=== PATIENT | female | born 1955 | race Two or more races ===

== ENCOUNTER 2018-10-28 15:20 | Inpatient (IN) | payer MEDICAID, MEDICARE, OTHER ==
[2018-10-28] MEDS ORDERED: METOPROLOL 5 MG/5 ML VIAL IVP STA ×2 (16:02→16:21)
[2018-10-28] MEDS ORDERED: METOPROLOL 5 MG/5 ML VIAL IVP ONE (16:04)
--- NOTE | 2018-10-28 16:06 | ED Physician Documentation ---
PD HPI DYSPNEA - Stated complaint Stated Complaint: SOA/TIGHT CHEST/NO ENERGY - Chief complaint Chief Complaint: Cardiac - History obtained from History obtained from: Patient - History of Present Illness Timing - onset: Other (She has had unexplained dyspnea for the last month. She went to her doctor, who said her lungs were clear. Gets lab work was done then to and it was normal. She was taking carvedilol for blood pressure. She has no history of heart disease. She stopped the carvedilol looking at the side effects thinking that it was potentially due to the carvedilol and the symptoms got worse. She denies pedal edema or chest pain. She has no heart history.) Review of Systems Ten Systems: 10 systems reviewed and negative Constitutional: reports: Fatigue. denies: Fever, Chills Throat: denies: Dental pain / toothache, Sore throat Cardiac: denies: Chest pain / pressure, Palpitations Respiratory: reports: Dyspnea. denies: Cough PD PAST MEDICAL HISTORY - Present Medications Home Medications: Ambulatory Orders Medication Instructions Recorded Confirmed Atorvastatin [Lipitor] 20 mg ORAL DAILY 10/28/18 10/28/18 Benazepril HCl [Lotensin] 20 mg PO DAILY 10/28/18 10/28/18 Sertraline [Zoloft] 100 mg PO BID 10/28/18 10/28/18 - Allergies Allergies/Adverse Reactions: Allergies Allergy/AdvReac Type Severity Reaction Status Date / Time Penicillins Allergy Unknown Verified 10/28/18 15:51 Sulfa (Sulfonamide Allergy Unknown Verified 10/28/18 15:51 Antibiotics) PD ED PE NORMAL - Vitals Vital signs reviewed: Yes - General General: Alert and oriented X 3, No acute distress - HEENT HEENT: PERRL, EOMI - Neck Neck: Supple, no meningeal sign, No bony TTP, Thyroid normal (No palpable thyromegaly) - Cardiac Cardiac: Other (Rapid and irregular without murmur) - Respiratory Respiratory: No respiratory distress, Other (Faint rales at the bases) - Abdomen Abdomen: Soft, Non tender - Derm Derm: Normal color - Extremities Extremities: No edema, No calf tenderness / cord - Neuro Neuro: Alert and oriented X 3, Normal speech - Psych Psych: Normal mood, Normal affect Results - Vitals Vitals: Vital Signs - 24 hr 10/28/18 10/28/18 10/28/18 15:47 15:50 16:05 Temperature 36.9 C Heart Rate 140 H 180 H 164 H Respiratory 20 14 14 Rate Blood Pressure 153/132 H 153/118 H 139/125 H O2 Saturation 96 97 97 10/28/18 10/28/18 10/28/18 16:06 16:08 16:14 Temperature Heart Rate 160 H 146 H 140 H Respiratory 12 18 Rate Blood Pressure 130/102 H 139/96 H 110/63 O2 Saturation 96 98 10/28/18 10/28/18 10/28/18 16:28 16:29 16:40 Temperature Heart Rate 152 H 135 H 112 H Respiratory 16 18 Rate Blood Pressure 116/99 H 127/104 H 140/104 H O2 Saturation 98 100 10/28/18 16:51 Temperature Heart Rate 138 H Respiratory 20 Rate Blood Pressure 119/93 H O2 Saturation 97 Oxygen O2 Source Room air - EKG (time done) 1538 Rate: Rate (enter#) (173) Rhythm: Atrial fibrillation [place]: Normal Ischemia: Non specific changes Computer interpretation: Agree with computer - Labs Labs: Laboratory Tests 10/28/18 10/28/18 10/28/18 15:53 15:53 15:53 WBC 7.9 RBC 4.52 Hgb 14.4 Hct 43.1 MCV 95.4 MCH 31.8 H MCHC 33.4 RDW 13.9 Plt Count 324 MPV 7.7 L Neut # (Auto) 6.1 Lymph # (Auto) 1.2 L [place] # (Auto) 0.5 Eos # (Auto) 0.1 Baso # (Auto) 0.1 Absolute Nucleated RBC 0.00 Nucleated RBC % 0.1 Sodium 138 Potassium 2.8 L Chloride 99 L Carbon Dioxide 29 Anion Gap 10.0 BUN 19 Creatinine 0.7 Estimated GFR (MDRD) 85 L Glucose 135 H Calcium 9.8 Magnesium 2.1 Total Bilirubin 0.9 AST 66 H ALT 124 H Alkaline Phosphatase 69 Troponin I < 0.04 B-Natriuretic Peptide Total Protein 7.3 Albumin 4.2 Globulin 3.1 Albumin/Globulin Ratio 1.4 Lipase 35 TSH 10/28/18 10/28/18 15:53 15:53 WBC RBC Hgb Hct MCV MCH MCHC RDW Plt Count MPV Neut # (Auto) Lymph # (Auto) [place] # (Auto) Eos # (Auto) Baso # (Auto) Absolute Nucleated RBC Nucleated RBC % Sodium Potassium Chloride Carbon Dioxide Anion Gap BUN Creatinine Estimated GFR (MDRD) Glucose Calcium Magnesium Total Bilirubin AST ALT Alkaline Phosphatase Troponin I B-Natriuretic Peptide 314 H Total Protein Albumin Globulin Albumin/Globulin Ratio Lipase TSH 3.49 - Rads (name of study) 1v Chest Radiology: EMP read contemporaneously (Cardiomegaly) PD MEDICAL DECISION MAKING - ED course ED course: This is a 62-year-old woman without history of heart disease who presents in rapid atrial fibrillation. Per her history she may have been in rapid fibrillation as much as a month which probably got worse when she stopped the carvedilol. She is not anticoagulated and as such she is not a candidate for ED cardioversion. She was administered her first divided doses of IV metoprolol, without much rate control. After first dose of diltiazem her rate was still 130-150. We were started a diltiazem drip and loaded with digoxin and I spoke with Dr. Larson for admission at 5:03 PM. - Critical Care Time(min): 40 Time Includes: Direct patient care, Review records, Reassess patient, Document care, Coordinate care, Medical consult Data interpretation: Labs, Pulse ox Procedures included in critical care time: Peripheral IV Procedures excluded from critical care time: EKG Departure - Departure Disposition: 66 [facility] DC/Xfer Clinical Impression: Atrial fibrillation Qualifiers: Atrial fibrillation type: persistent Qualified Code(s): I48.1 - Persistent atrial fibrillation Condition: Critical
[2018-10-28 16:21] LABS: BASOPHILS # (AUTO) 0.1 10^3/uL (0.0-0.1); BASOPHILS % (AUTO) 0.6 %; EOSINOPHILS # (AUTO) 0.1 10^3/uL (0.0-0.7); HGB - HEMOGLOBIN 14.4 g/dL (12.0-16.0); LYMPHOCYTES # (AUTO) 1.2 10^3/uL (1.5-3.5); LYMPHOCYTES % (AUTO) 14.8 %; MEAN CORPUSCULAR HEMOGLOBIN 31.8 pg (27.0-31.0); MEAN CORPUSCULAR HGB CONC 33.4 g/dL (32.0-36.0); MEAN CORPUSCULAR VOLUME 95.4 fL (81.0-99.0); MEAN PLATELET VOLUME 7.7 fL (7.9-10.8); MONOCYTES # (AUTO) 0.5 10^3/uL (0.0-1.0); NEUTROPHILS # (AUTO) 6.1 10^3/uL (1.5-6.6); NEUTROPHILS % (AUTO) 77.6 %; PLT - PLATELET COUNT 324 10^3/uL (130-450); RED BLOOD COUNT 4.52 10^6/uL (4.20-5.40); RED CELL DISTRIBUTION WIDTH 13.9 % (12.0-15.0); WHITE BLOOD COUNT 7.9 x10^3/uL (4.8-10.8)
[2018-10-28 16:27] LABS: ALBUMIN 4.2 g/dL (3.2-5.5); ALBUMIN/GLOBULIN RATIO 1.4 (1.0-2.2); BILIRUBIN,TOTAL 0.9 mg/dL (0.2-1.0); CALCIUM 9.8 mg/dL (8.5-10.3); CREATININE 0.7 mg/dL (0.4-1.0); MAGNESIUM 2.1 mg/dL (1.7-2.8); TOTAL PROTEIN 7.3 g/dL (6.7-8.2)
[2018-10-28] MEDS ORDERED: diltiaZEM INJ 5 MG/ML VIAL IVP STA (16:40)
[2018-10-28] MEDS ORDERED: POTASSIUM BICARB 25 MEQ TABLET PO STA (16:40)
--- NOTE | 2018-10-28 16:51 | XRAY Report ---
Reason: dyspnea Procedure Date: 10/28/2018 Accession Number: [id number] / [id number] Procedure: XR - Chest 1 View X-Ray CPT Code: 42447 FULL RESULT: EXAM: CHEST RADIOGRAPHY EXAM DATE: 10/28/2018 04:22 PM. CLINICAL HISTORY: Dyspnea. COMPARISON: None. TECHNIQUE: 1 view. FINDINGS: Lungs/Pleura: No focal opacities evident. No pleural effusion. No pneumothorax. Mediastinum: The large heart. Other: Mild S-shaped scoliosis, otherwise no bony abnormalities identified. IMPRESSION: Cardiomegaly without signs of CHF or acute pulmonary abnormality. RADIA
[2018-10-28] MEDS ORDERED: diltiaZEM INJ 125 MG in DEXTROSE 5% 100 ML IV STA (16:56)
[2018-10-28] MEDS ORDERED: oxyCODONE 5 MG TABLET PO PRN (17:04)
[2018-10-28] MEDS ORDERED: ACETAMINOPHEN 325 MG TABLET PO PRN (17:04)
[2018-10-28] MEDS ORDERED: ONDANSETRON ODT 4 MG TABLET TL PRN (17:04)
[2018-10-28] MEDS ORDERED: ONDANSETRON 4 MG/2 ML VIAL IVP PRN (17:04)
[2018-10-28] MEDS ORDERED: DIGOXIN 500 MCG/2 ML AMP IVP STA (17:30)
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
[2018-10-28] MEDS ORDERED: IOVERSOL 320 100 ML VIAL IVP ONE ×2 (19:42→20:30)
[2018-10-28] MEDS: SODIUM CHLORIDE FLUSH 0.9% 10 ML SYRINGE IVP PRN (20:24)
[2018-10-28] MEDS: SODIUM CHLORIDE FLUSH 0.9% 10 ML SYRINGE IVP SCH (20:24)
[2018-10-28] MEDS: ENOXAPARIN 80 MG/0.8 ML SYRINGE SUBQ SCH (21:21)
[2018-10-28] MEDS: SERTRALINE 50 MG TABLET PO SCH (21:43)
[2018-10-28] MEDS: POTASSIUM CHLORIDE 20 MEQ TABLET PO SCH (22:18)
--- NOTE | 2018-10-28 23:06 | CT Report ---
Reason: SOB w/ leg swelling, r/o PE Procedure Date: 10/28/2018 Accession Number: [id number] / [id number] Procedure: CT - Chest Angio (PE) CPT Code: FULL RESULT: EXAM: CT ANGIOGRAM CHEST EXAM DATE: 10/28/2018 08:29 PM. CLINICAL HISTORY: SOB w/ leg swelling, r/o PE. COMPARISON: None. TECHNIQUE: Routine helical imaging was performed through the chest in the pulmonary arterial phase. IV Contrast: 60 ML OPTIRAY 320. Reconstructions: Coronal 3-D MIP reconstructions.Sagittal and coronal. In accordance with CT protocol optimization, one or more of the following dose reduction techniques were utilized for this exam: automated exposure control, adjustment of mA and/or KV based on patient size, or use of iterative reconstructive technique. FINDINGS: Pulmonary Arteries: Diagnostic quality: Adequate through the proximal to mid segmental arteries. No evidence for acute or chronic pulmonary emboli. Lungs/Pleura: The lungs demonstrate a mosaic parenchymal pattern. There is mild interlobular septal thickening. There is a moderate size right pleural effusion. There is a small left pleural effusion. There is mild bibasilar atelectasis. There is no pneumothorax. Mediastinum: There is cardiomegaly. There is reflux of contrast into the IVC. There are no enlarged axillary or supraclavicular lymph nodes. There are subcentimeter mediastinal lymph nodes. No clearly enlarged hilar lymph nodes. Thoracic Aorta: Opacification of the thoracic aorta is inadequate to exclude dissection. There is no evidence of thoracic aorta aneurysm. Upper Abdomen: Unremarkable. Other: None. IMPRESSION: 1. No evidence of acute pulmonary embolism through the proximal to mid segmental branch level. 2. The lungs demonstrate a mosaic parenchymal pattern with interlobular septal thickening. There are bilateral pleural effusions. Findings may represent some combination of the lung edema and air trapping secondary to small to medium airway disease. 3. There is cardiomegaly. RADIA
--- NOTE | 2018-10-29 01:15 | Ultrasound Report ---
Reason: Eval for DVT due to risk factors, and SOB, PE? Procedure Date: 10/28/2018 Accession Number: [id number] / [id number] Procedure: US - Duplex Ext Veins Bilateral CPT Code: FULL RESULT: EXAM: BILATERAL LOWER EXTREMITY VENOUS ULTRASOUND EXAM DATE: 10/28/2018 11:25 PM. CLINICAL HISTORY: Eval for DVT due to risk factors, and shortness of breath, PE?. COMPARISON: None. TECHNIQUE: Real-time sonographic vascular imaging was performed by the cyber intelligence analyst through the lower extremities utilizing both color-flow and Doppler spectral analysis. Multiple outside medical sales representative static images were saved for review. FINDINGS: Right: Common Femoral Vein (CFV): Normal. CFV-GSV Junction: Normal. Profunda Femoral Vein (PFV): Normal. Femoral Vein (FV) Prox: Normal. Femoral Vein (FV) Mid: Normal. Femoral Vein (FV) Dist: Normal. Popliteal Vein: Normal. Posterior Tibial Veins: Normal. Peroneal Veins: Normal. Left: Common Femoral Vein (CFV): Normal. CFV-GSV Junction: Normal. Profunda Femoral Vein (PFV): Normal. Femoral Vein (FV) Prox: Normal. Femoral Vein (FV) Mid: Normal. Femoral Vein (FV) Dist: Normal. Popliteal Vein: Normal. Posterior Tibial Veins: Normal. Peroneal Veins: Normal. Other: None. IMPRESSION: No evidence for deep venous thrombosis bilaterally. RADIA
--- NOTE | 2018-10-29 01:19 | Ultrasound Report ---
Reason: elevated LFT Procedure Date: 10/28/2018 Accession Number: [id number] / [id number] Procedure: US - Abdomen Limited CPT Code: FULL RESULT: EXAM: ABDOMEN ULTRASOUND LIMITED, RUQ EXAM DATE: 10/28/2018 11:59 PM. CLINICAL HISTORY: Abnormal liver function tests. COMPARISON: None. TECHNIQUE: Real-time scanning was performed with static images obtained. FINDINGS: Liver: Heterogeneous and echogenic. Focus of decreased echogenicity in the anterior left lobe measuring 1.1 x 1.2 x 1.1 cm. 17.0 cm. Main portal vein flow: Hepatopetal. Gallbladder: Normal. No stones, wall thickening, or sonographic Hernandez's sign. Biliary System: CBD measures 2.8 mm. No intrahepatic or extrahepatic ductal dilatation. Other: Right kidney measures 11.9 cm and appears normal. Pancreas is not well seen due to bowel gas. Visualized portions appear normal. Inferior vena cava is patent where seen. Right pleural effusion is noted. IMPRESSION: 1. No cholelithiasis or cholecystitis. 2. Fatty liver with focus of decreased attenuation in the left lobe measuring 1.1 x 1.2 x 1.1 cm. This could be focal fatty sparing. Other benign and malignant etiologies are not excluded. 3. Pancreas is not well seen. Visualized portions appear normal. 4. Right pleural effusion. RADIA
[2018-10-29] MEDS: FUROSEMIDE 20 MG/2 ML VIAL IVP SCH ×2 (01:22→10:34)
[2018-10-29] MEDS: SODIUM CHLORIDE FLUSH 0.9% 10 ML SYRINGE IVP PRN ×2 (01:22→14:18)
[2018-10-29] MEDS ORDERED: diltiaZEM INJ 125 MG in DEXTROSE 5% 100 ML IV SCH (03:00)
[2018-10-29 04:53] LABS: CALCIUM 9.4 mg/dL (8.5-10.3); CREATININE 0.7 mg/dL (0.4-1.0); MAGNESIUM 1.9 mg/dL (1.7-2.8)
[2018-10-29] MEDS ORDERED: POTASSIUM CHLORIDE 20 MEQ TABLET PO SCH ×2 (06:00→10:00)
[2018-10-29] MEDS: POTASSIUM CHLORIDE 20 MEQ TABLET PO SCH ×2 (06:04→14:14)
[2018-10-29] MEDS: SERTRALINE 50 MG TABLET PO SCH ×2 (08:45→21:08)
[2018-10-29] MEDS: ENOXAPARIN 80 MG/0.8 ML SYRINGE SUBQ SCH ×2 (08:46→21:08)
[2018-10-29] MEDS: LISINOPRIL 20 MG TABLET PO SCH (08:48)
[2018-10-29] MEDS: SODIUM CHLORIDE FLUSH 0.9% 10 ML SYRINGE IVP SCH ×3 (08:51→22:09)
[2018-10-29] MEDS: DIGOXIN 500 MCG/2 ML AMP IVP SCH ×3 (08:54→22:09)
[2018-10-29] MEDS ORDERED: CARVEDILOL 12.5 MG TABLET PO SCH (09:00)
--- NOTE | 2018-10-29 11:22 | PROVIDER PROGRESS NOTE ---
Subjective - Prog Note Date Prog Note Date: 10/29/18 Prog Note Time: 11:17 - Subjective Pt reports feeling: Improved Subjective: Overnight she needed Lasix not because of shortness of breath but because of desaturation. She says that she feels much better than yesterday. She is annoyed how much she had to urinate with the Lasix. Denies chest pain, palpitations. No leg edema. CT pulmonary angiogram was negative. Venous Dopplers were negative for DVT. Second set of troponins negative. Echocardiogram is being done as I speak and left ventricle ejection fraction is estimated at 40-45% right now. Current Medications - Current Medications Current Medications: Active Medications Acetaminophen (Tylenol) 650 mg PO Q4HR PRN PRN Reason: Pain 1 to 4 Carvedilol (Coreg) 12.5 mg PO BID [facility] Last Admin: 10/29/18 08:44 Dose: 12.5 mg Digoxin (Lanoxin Inj) 250 mcg IVP TID [facility] Stop: 10/29/18 22:01 Last Admin: 10/29/18 08:54 Dose: 250 mcg Enoxaparin Sodium (Lovenox) 80 mg SUBQ BID [facility] Last Admin: 10/29/18 08:46 Dose: 80 mg Furosemide (Lasix Inj 20mg Vial) 20 mg IVP DAILY [facility] Last Admin: 10/29/18 10:34 Dose: 20 mg Diltiazem HCl 125 mg/ Dextrose 125 mls @ 5 mls/hr IV .Q25H [facility]; Protocol Last Titration: 10/29/18 10:39 Dose: 0 mg/hr, 0 mls/hr Lisinopril (Zestril) 20 mg PO DAILY [facility] Last Admin: 10/29/18 08:48 Dose: 20 mg Ondansetron HCl (Zofran Inj) 4 mg IVP Q6HR PRN PRN Reason: Nausea / Vomiting Ondansetron HCl (Zofran Odt) 4 mg TL Q6HR PRN PRN Reason: Nausea / Vomiting Oxycodone HCl (Roxicodone) 5 mg PO Q4HR PRN PRN Reason: Pain 5 to 7 Potassium Chloride (K-Dur) 40 meq PO TID [facility] Stop: 10/29/18 14:01 Last Admin: 10/29/18 06:04 Dose: 40 meq Sertraline HCl (Zoloft) 100 mg PO BID [facility] Last Admin: 10/29/18 08:45 Dose: 100 mg Sodium Chloride (Normal Saline Flush 0.9%) 10 ml IVP 0100,0900,1700 [facility] Last Admin: 10/29/18 08:51 Dose: 10 ml Sodium Chloride (Normal Saline Flush 0.9%) 10 ml IVP PRN PRN PRN Reason: NEEDED PER PROVIDER ORDERS Last Admin: 10/29/18 01:22 Dose: 10 ml Albuterol Sulfate [Proair Hfa Inhaler] 2 puffs INH Q4H PRN 10/28/18 Aspirin [Aspirin EC] 81 mg PO DAILY 10/28/18 Atorvastatin [Lipitor] 20 mg ORAL DAILY 10/28/18 Benazepril/Hydrochlorothiazide [Benazepril-Hctz 20-25 mg Tab] 1 tab PO DAILY 10/28/18 Calcium Carbonate/Vitamin D3 [Calcium 600-Vit D3 800 Tablet] 1 tab PO DAILY 10/28/18 Carvedilol 12.5 mg PO BID 10/28/18 Milk Thistle Seed Extract [Milk Thistle] 175 mg PO DAILY 10/28/18 Multivitamin [Theragran] 1 tab PO DAILY 10/28/18 Potassium Gluconate 198 mg PO DAILY 10/28/18 Sertraline [Zoloft] 100 mg PO BID 10/28/18 Objective - Vital Signs/Intake & Output Reviewed Vital Signs: Yes Vital Signs: Vital Signs Temp Pulse Pulse Resp BP Pulse Ox 10/29/18 11:00 95 15 110/93 H 96 10/29/18 10:36 87 10/29/18 10:00 103 H 17 113/82 H 95 10/29/18 09:00 114 H 25 H 156/127 H 96 10/29/18 08:54 131 H 10/29/18 08:00 37.2 C 18 136/79 H 96 Intake & Output: Intake & Output 10/26/18 10/27/18 10/28/18 10/29/18 23:59 23:59 23:59 23:59 Intake Total 32.000 915.334 Balance 32.000 915.334 - Objective General Appearance: positive: No acute distress, Alert Eyes Bilateral: positive: PERRL, EOMI Neck: positive: No JVD. negative: Stiff neck, Carotid bruit Respiratory: positive: Chest non-tender. negative: Wheezes, Rales, Rhonchi Cardiovascular: positive: Irregularly irregular, Tachycardia (The most she slows down to is 94, 95. She is hanging around 110. She is still on a diltiazem drip.). negative: Gallop/S4, Friction rub Abdomen: positive: Non-tender, No organomegaly, Nml bowel sounds, No distention Skin: positive: Warm, Dry Extremities: positive: Non-tender, Full ROM, No pedal edema Neurologic/Psychiatric: positive: Oriented x3, CN's nml (2-12), Motor nml - Lab Results Fish Bones: 10/28/18 15:53 10/29/18 04:15 Other Labs: Lab Results x24hrs 10/29/18 10/28/18 10/28/18 Range/Units 04:15 21:57 15:53 WBC (4.8-10.8) x10^3/uL RBC (4.20-5.40) 10^6/uL Hgb (12.0-16.0) g/dL Hct (37.0-47.0) % MCV (81.0-99.0) fL MCH (27.0-31.0) pg MCHC (32.0-36.0) g/dL RDW (12.0-15.0) % Plt Count (130-450) 10^3/uL MPV (7.9-10.8) fL Neut # (Auto) (1.5-6.6) 10^3/uL Lymph # (Auto) (1.5-3.5) 10^3/uL Ida # (Auto) (0.0-1.0) 10^3/uL Eos # (Auto) (0.0-0.7) 10^3/uL Baso # (Auto) (0.0-0.1) 10^3/uL Absolute Nucleated RBC x10^3/uL Nucleated RBC % /100WBC Sodium 141 (135-145) mmol/L Potassium 2.8 L (3.5-5.0) mmol/L Chloride 99 L (101-111) mmol/L Carbon Dioxide 31 (21-32) mmol/L Anion Gap 11.0 (6-13) BUN 14 (6-20) mg/dL Creatinine 0.7 (0.4-1.0) mg/dL Estimated GFR (MDRD) 85 L (>89) Glucose 113 H (70-100) mg/dL Calcium 9.4 (8.5-10.3) mg/dL Magnesium 1.9 (1.7-2.8) mg/dL Total Bilirubin (0.2-1.0) mg/dL AST (10-42) IU/L ALT (10-60) IU/L Alkaline Phosphatase (42-121) IU/L Troponin I < 0.04 (<0.49) ng/mL B-Natriuretic Peptide (5-100) pg/mL Total Protein (6.7-8.2) g/dL Albumin (3.2-5.5) g/dL Globulin (2.1-4.2) g/dL Albumin/Globulin Ratio (1.0-2.2) Lipase (22-51) U/L TSH 3.49 (0.34-5.60) uIU/mL 10/28/18 10/28/18 10/28/18 Range/Units 15:53 15:53 15:53 WBC (4.8-10.8) x10^3/uL RBC (4.20-5.40) 10^6/uL Hgb (12.0-16.0) g/dL Hct (37.0-47.0) % MCV (81.0-99.0) fL MCH (27.0-31.0) pg MCHC (32.0-36.0) g/dL RDW (12.0-15.0) % Plt Count (130-450) 10^3/uL MPV (7.9-10.8) fL Neut # (Auto) (1.5-6.6) 10^3/uL Lymph # (Auto) (1.5-3.5) 10^3/uL Ida # (Auto) (0.0-1.0) 10^3/uL Eos # (Auto) (0.0-0.7) 10^3/uL Baso # (Auto) (0.0-0.1) 10^3/uL Absolute Nucleated RBC x10^3/uL Nucleated RBC % /100WBC Sodium 138 (135-145) mmol/L Potassium 2.8 L (3.5-5.0) mmol/L Chloride 99 L (101-111) mmol/L Carbon Dioxide 29 (21-32) mmol/L Anion Gap 10.0 (6-13) BUN 19 (6-20) mg/dL Creatinine 0.7 (0.4-1.0) mg/dL Estimated GFR (MDRD) 85 L (>89) Glucose 135 H (70-100) mg/dL Calcium 9.8 (8.5-10.3) mg/dL Magnesium 2.1 (1.7-2.8) mg/dL Total Bilirubin 0.9 (0.2-1.0) mg/dL AST 66 H (10-42) IU/L ALT 124 H (10-60) IU/L Alkaline Phosphatase 69 (42-121) IU/L Troponin I < 0.04 (<0.49) ng/mL B-Natriuretic Peptide 314 H (5-100) pg/mL Total Protein 7.3 (6.7-8.2) g/dL Albumin 4.2 (3.2-5.5) g/dL Globulin 3.1 (2.1-4.2) g/dL Albumin/Globulin Ratio 1.4 (1.0-2.2) Lipase 35 (22-51) U/L TSH (0.34-5.60) uIU/mL 10/28/18 Range/Units 15:53 WBC 7.9 (4.8-10.8) x10^3/uL RBC 4.52 (4.20-5.40) 10^6/uL Hgb 14.4 (12.0-16.0) g/dL Hct 43.1 (37.0-47.0) % MCV 95.4 (81.0-99.0) fL MCH 31.8 H (27.0-31.0) pg MCHC 33.4 (32.0-36.0) g/dL RDW 13.9 (12.0-15.0) % Plt Count 324 (130-450) 10^3/uL MPV 7.7 L (7.9-10.8) fL Neut # (Auto) 6.1 (1.5-6.6) 10^3/uL Lymph # (Auto) 1.2 L (1.5-3.5) 10^3/uL Ida # (Auto) 0.5 (0.0-1.0) 10^3/uL Eos # (Auto) 0.1 (0.0-0.7) 10^3/uL Baso # (Auto) 0.1 (0.0-0.1) 10^3/uL Absolute Nucleated RBC 0.00 x10^3/uL Nucleated RBC % 0.1 /100WBC Sodium (135-145) mmol/L Potassium (3.5-5.0) mmol/L Chloride (101-111) mmol/L Carbon Dioxide (21-32) mmol/L Anion Gap (6-13) BUN (6-20) mg/dL Creatinine (0.4-1.0) mg/dL Estimated GFR (MDRD) (>89) Glucose (70-100) mg/dL Calcium (8.5-10.3) mg/dL Magnesium (1.7-2.8) mg/dL Total Bilirubin (0.2-1.0) mg/dL AST (10-42) IU/L ALT (10-60) IU/L Alkaline Phosphatase (42-121) IU/L Troponin I (<0.49) ng/mL B-Natriuretic Peptide (5-100) pg/mL Total Protein (6.7-8.2) g/dL Albumin (3.2-5.5) g/dL Globulin (2.1-4.2) g/dL Albumin/Globulin Ratio (1.0-2.2) Lipase (22-51) U/L TSH (0.34-5.60) uIU/mL Assessment/Plan - Problem List (1) Atrial fibrillation with rapid ventricular response Impression: She presents as dyspnea on exertion for the last month to month and a half. The usual three mile walk is now cut to less than half of a mile. No history of valvular heart disease, but at risk for DVT and PE from her history of breast cancer, tamoxifen, and long drives between here in [place]. Other differential will be PR, or thyroid. Troponins are negative and TSH is normal. Her CT pulmonary angiogram was negative for pulmonary embolus. However she has diffuse parenchymal mosaic changes with bronchial and septal thickening indicating chronic disease, most likely obstructive. Venous Dopplers were negative for DVT. As such her atrial fibrillation may be from chamber dilation. I am awaiting final report for echocardiogram. Plan: Inpatient admission Continues. Her rate is slowing down, I anticipate possible discharge tomorrow. Echocardiogram to assess ventricle and valves Has been done, results are pending and I will review 2 sets troponins Normal Continue diltiazem drip until rate is controlled and then transition to p.o. However, her ejection fraction is reduced. I will opted not to use Cardizem p.o. but switch her back to her Coreg that she used to take. Start her at 12.5 mg p.o. twice daily. We will also fully load digoxin. CHADS2 score: 1 point for hypertension, 1 point for CHF, and 0 points for age, diabetes, stroke or TIA. 2 points makes her an intermediate risk of thromboembolic event. 4% risk of event per year if no Coumadin. I am considering Xarelto. However this may be cost prohibitive and we may end up having to change her to another anticoagulant.I will fax to pharmacy today to see how much it would cost her. (2) Acute systolic congestive heart failure, NYHA class 2 Conclusion/Plan: May be due to left ventricular dysfunction versus atrial fibrillation with muscle failure. Preliminary echo report shows reduced ejection fraction. She did receive Lasix last night because of desaturation but not shortness of breath. Brisk urine output in the boat puller hours. She says she feels much better than yesterday. Plan: Echo To be reviewed Lasix started daily. BNP is only minimally minimally elevated and physical exam findings are not that impressive.She is already on Zestril 20 mg a day for KIRAN inhibitor treatment of congestive heart failure. (3) Hypertension Conclusion/Plan: Will resume Coreg as part of her rate control, as well as blood pressure control. Lisinopril already being taken Qualifiers: Hypertension type: essential hypertension Qualified Code(s): I10 - Essential (primary) hypertension (4) Hypokalemia Conclusion/Plan: P.o. supplementation in the emergency room. Even with p.o. doses last night, she is still low at 2.8. We will continue to supplement. Recheck BMP and BNP in the morning.
[2018-10-29 17:37] LABS: MAGNESIUM 2.2 mg/dL (1.7-2.8); PHOSPHORUS 3.2 mg/dL (2.5-4.6)
[2018-10-29] MEDS: CARVEDILOL 12.5 MG TABLET PO SCH (21:08)
[2018-10-30 05:03] LABS: CALCIUM 9.1 mg/dL (8.5-10.3); CREATININE 0.7 mg/dL (0.4-1.0)
[2018-10-30 05:55] LABS: MAGNESIUM 2.3 mg/dL (1.7-2.8); PHOSPHORUS 3.8 mg/dL (2.5-4.6)
[2018-10-30] MEDS: CARVEDILOL 12.5 MG TABLET PO SCH (08:14)
[2018-10-30] MEDS: SERTRALINE 50 MG TABLET PO SCH (08:14)
[2018-10-30] MEDS: LISINOPRIL 20 MG TABLET PO SCH (08:15)
[2018-10-30] MEDS: FUROSEMIDE 20 MG/2 ML VIAL IVP SCH (08:15)
[2018-10-30] MEDS: ENOXAPARIN 80 MG/0.8 ML SYRINGE SUBQ SCH (08:15)
[2018-10-30] MEDS: SODIUM CHLORIDE FLUSH 0.9% 10 ML SYRINGE IVP SCH (08:20)
[2018-10-30] MEDS ORDERED: DIGOXIN 125 MCG TABLET PO SCH (09:00)
--- NOTE | 2018-10-30 11:44 | Discharge Plan ---
Discharge Plan Disposition: Home, Self Care Condition: Good Prescriptions: Carvedilol [Coreg] 25 mg PO BID #60 tablet Digoxin [Lanoxin] 125 mcg PO DAILY #30 tablet Furosemide [Lasix] 20 mg PO DAILY #30 tablet Potassium Chloride [Klor-Con] 20 meq PO DAILY #30 packet Warfarin [Coumadin] 5 mg PO 1400 #30 tablet Diet: Low Sodium Activity Restrictions: Activity as Tolerated Shower Restrictions: No Driving Restrictions: No Instruction Topics: Digoxin, Atrial Fibrillation Dc, Stroke Prevent Live W Atrial Fib Additional Instructions or Follow Up instructions: You were brought into the hospital because you were severely short of breath for the last month and a half. When you presented to the emergency room you were found to be in atrial fibrillation which is an irregularly irregular heart rate. Your heart rate was very fast and it put you into congestive heart failure. We were able to give you a diuretic, slow down your heart rate, and do quite a bit of studies to bring you under control. 1. An ultrasound of your heart called an echocardiogram shows you to have diffuse mild reduction in your left-sided heart pump. Normal is 65% and you were 40-45%. You do not have any valve disease. 2. A CAT scan of your chest was done to make sure you are not having pulmonary emboli. That was negative for pulmonary emboli but you have diffuse thickening of your bronchial tubes, and a moderate pleural effusion which is water accumulated right outside your lung tissue. We think the pleural effusion is from her congestive heart failure and that will get better as your water accumulation from congestive heart failure gets better. 2. We will worried about your risk of blood clots because you have had breast cancer, drive long distances between [place] and here, and are in new onset atrial fibrillation. Your venous Dopplers of your legs were negative for blood clot. 4. Your liver enzymes were elevated. We found you to have a fatty liver. No gallstones, or acute gallbladder inflammation. A hepatitis panel has been done but is pending at the time of discharge. Please have the doctor that sees you in follow-up call the hospital to make sure that the hepatitis panel is negative. 5. Your potassium was low when you came into the hospital. The water pill we are giving you can sometimes also make your potassium even lower. So when you go home you will be sent on potassium tablets. A water tablet. A medicine to slow down her heart rate call Coreg as well as digoxin. 6. Because atrial fibrillation increases your risk of stroke, your to be placed in a blood thinner called Coumadin. We did call the pharmacy to see if Xarelto (which is much easier to use) would be good for you. However it is $700 a month and that is too expensive. So you will be going home on Coumadin. Please get your blood checked for a measurement of how thin your blood is, called an INR, on November 01 and November 03. I will call in order to the lab. We need to aim for a INR of between 2-3. We need to adjust your Coumadin on the basis of that. If you do not get an appointment with your primary care office, please call the hospitalist office to see if we can help you with that. The daytime hospitalist phone number is [phone] No Smoking: If you smoke, Please STOP! Call for help. Follow-up with: Provider,Other [Primary Care Provider] -
[2018-10-30 12:05] VITALS: BP 167/104
[2018-10-30 13:07] LABS: HEPATITIS A IGM NON-REACTIVE (NON-REACTIVE); HEPATITIS B CORE ANTIBODY IGM NON-REACTIVE (NON-REACTIVE); HEPATITIS B SURFACE ANTIGEN NON-REACTIVE (NON-REACTIVE); HEPATITIS C ANTIBODY NON-REACTIVE (NON-REACTIVE)
--- NOTE | 2018-10-31 02:45 | DISCHARGE SUMMARY ---
Physician: Rowena Larson MD DATE OF ADMISSION: 10/28/2018 DATE OF DISCHARGE: 10/30/2018 DISCHARGE DIAGNOSES 1. Acute systolic congestive heart failure. 2. New onset atrial fibrillation with rapid ventricular response. 3. Hypertension. 4. Hypokalemia. 5. Hyperlipidemia. 6. History of breast cancer. 7. Left leg edema. 8. Abnormal liver ultrasound. 9. Pleural effusion. DISCHARGE MEDICATIONS 1. ProAir HFA inhaler 2 puffs every 4 hours as needed. 2. Lipitor 20 mg daily. 3. Benazepril with hydrochlorothiazide 20/25 mg tablet daily. 4. Calcium carbonate with vitamin D 600/800 daily. 5. Zoloft 100 mg p.o. b.i.d. NEW PRESCRIPTIONS 1. Coreg 25 mg p.o. b.i.d. 2. Lanoxin 0.125 p.o. daily. 3. Lasix 20 mg daily. 4. Klor-Con 20 mEq daily. 5. Coumadin 5 mg daily. PRINCIPAL PROCEDURES 1. Chest x-ray with enlarged cardiac silhouette, no acute cardiopulmonary abnormality. 2. Ultrasound of abdomen done for abnormal liver function studies without cholelithiasis or cholecys titis. Fatty liver with focus of decreased attenuation in the left lobe measuring 1.1 x 1.2 x 1.1 cm . This could be focal fatty sparing. Other benign and malignant etiologies not excluded. Pancreas not well visualized. Right pleural effusion. 3. Venous duplex study, bilateral lower extremities. No DVT. 4. CT thorax/CT angiogram with lungs showing a mosaic parenchymal pattern. Mild intralobular septal thickening with moderate size right pleural effusion. Cardiomegaly. No evidence for acute or chron ic pulmonary emboli. 5. Echocardiogram. This is a preliminary reading. Final report must be verified in followup by [facility] care provider. Left ventricle size normal. Mild concentric left ventricular hypertrophy. Left ventricular systolic function mildly to moderately globally impaired with an ejection fraction of 40 % to 45%. Diastolic dysfunction indeterminate. Right ventricle normal in size and function. Mild i ncrease in left atrial volume index. No significant valvular heart disease. Right ventricular systo lic pressure at rest is 46 mmHg. HOSPITAL COURSE: This is an absolutely kiran, 62-year-old, white female whose past medical history is that of hypertension. She otherwise regards herself as relatively healthy. 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 She lives in [place], on a limited fixed inc me, and lives with her son and [id number] by paying them rent, taking care of their kids, cleani ng their house, and going to the grocery store for them. She will then drive from [place] to [facility] to take care of her elderly parents, who are quite demented. There is a significant amount of stress in her life. Add to that, she is financially destitute since her of 40 years divo rced her. About a month and a half ago, she noticed that she was having significant dyspnea on exertion. She u sually walks 3 miles a day and walks the [place] here on the [place] with her dog. Over the cou rse of approximately a month, starting about a month and a half ago, she noticed that she could barel y walk half a mile. No edema, no chest pain, no palpitations, no fevers, no sweats, no unexpected we ight changes. She saw her primary care provider in [place] and lung exam was reportedly normal. She came back to [facility] to take care of her parents again. Dad has been successfully placed in an assisted living facility, and she is now guiltily pondering placing her elderly mom at an fanny fifi living facility as well. She is so exhausted, she does not know how much longer she can keep thi s pace up. She finally came to the emergency room when dyspnea on exertion was so severe she felt like she was s uffocating. In the emergency room, she was identified as new onset atrial fibrillation. Because she has a history of breast cancer, drives long distances, and has a subtle review of systems positive f or unilateral left leg edema, she was worked up for DVT, PE, TN. All of these studies were negative. Echocardiogram is as above. Rate control consisted of a diltiazem drip until her ejection fraction came back, and she was transitioned over to Coreg and digoxin. Liver enzymes were elevated, it was felt to be passive congestion from acute systolic congestive hear t failure. She responded to the rate control and Lasix diuresis. Acute hepatitis panel is nonreacti ve for A, B, and C. Because the ultrasound result shows a possible mass, and she has a pleural effus ion, she should be followed up by a primary care provider for workup of the liver, and possibly get a CT of the abdomen and tumor markers. Hypokalemia was noted during her stay. She was 2.8 and supplemented, so that at discharge she was 3. 5. Troponins were negative. BNP was mildly elevated at 380 on the day of discharge. I did attempt to start her on Xarelto for anticoagulation. Her CHADS score. Her CHADS2-VASc score i s 2 points, which makes her an intermediate risk of thromboembolic event. Four percent risk of event per year, if no Coumadin. Since Xarelto was $700 a month on insurance, $900 a month off insurance, she requested that she be placed on the cheapest medication possible, and that was Coumadin. She was started on 5 mg a day, but will need adjustment. This is problematic, as she does not have a primar care provider on the [place]. As such, I have given her a lab order for November 01 and November 03. I will check her pro time and INR, and adjust her Coumadin as needed. She has an appointment with a primary care provider on the [place] on November 06, at the [facility]. She was discharged in stable condition. Pulse rate at rest and with relaxation is in the 80s and occ asionally in the 90s. When she walks greater than 200 feet, pulse rate starts going to 110. When elias alonzo walked 3 laps around the hallway in this building, she was tachypneic, tachycardic, but recovered w ithin 2 minutes. PHYSICAL EXAMINATION VITAL SIGNS: Temperature is 37.1, pulse 80, blood pressure 167/104, respirations 14, 95% on room air . GENERAL: Again, she is an exceedingly pleasant, white female. No JVD. LUNGS: Clear to auscultation and percussion. There is no JVD. No crackles, rhonchi, or wheezing. She has irregular rate and rhythm with no murmurs, rubs, gallops. ABDOMEN: Benign. There is no organomegaly. Liver edge is not palpable. No distention. Normal bow el sounds. EXTREMITIES: There is no leg edema. NEUROLOGIC: She ambulates in her room in the hallways without any ataxia and does not need a standby assist. Greater than 30 minutes was spent in coordinating discharge. I have given her very explicit instruct ions with regard to INR, followup with me, and she has given me her phone number to text her at . She will see the primary care provider on [facility]. She will need a weight done, lung e xams, INR, BMP and BNP. I would also like her to be scheduled for a CT of the abdomen to make sure t he indeterminate liver irregularity is not something we need to be concerned about. At this time, I am attributing her pleural effusion to congestive heart failure and atrial fibrillation with RVR. I want to make sure that it dissipates. If it does not, she will need a diagnostic thoracentesis. TD: 10/30/2018 18:22
== END 2018-10-30 14:15 | disposition home or self-care (01) | DRG 291 ==
LOC: ED 15:20 → ICU 17:04
PROVIDERS: ADMIT Specialist; ATTEND Specialist
DX: I11.0 Hypertensive heart disease with heart failure (principal); I50.21 Acute systolic (congestive) heart failure; I48.91 Unspecified atrial fibrillation; Z88.0 Allergy status to penicillin; Z88.2 Allergy status to sulfonamides; E87.6 Hypokalemia; E78.5 Hyperlipidemia, unspecified; Z85.3 Personal history of malignant neoplasm of breast; Z85.89 Personal history of malignant neoplasm of other organs and systems; R06.82 Tachypnea, not elsewhere classified; E78.00 Pure hypercholesterolemia, unspecified; Z86.010 Personal history of colon polyps; Z90.710 Acquired absence of both cervix and uterus; Z90.721 Acquired absence of ovaries, unilateral; Z90.10 Acquired absence of unspecified breast and nipple; H54.7 Unspecified visual loss; Z92.3 Personal history of irradiation; Z92.21 Personal history of antineoplastic chemotherapy; Z66 Do not resuscitate; Z79.82 Long term (current) use of aspirin
CPT/HCPCS: 36415; 71045; 71275; 76705; 80048; 80053; 80074; 83690; 83735; 83880; 84100; 84132; 84443; 84484; 85025; 87150; 93005; 93306; 93970; 96374; 96375; 99284; 99285; 99291

== ENCOUNTER 2018-11-01 14:59 | Outpatient (CLI) | payer MEDICAID ==
[2018-11-01 15:25] LABS: INR 1.2 (0.8-1.2); PT - PROTHROMBIN TIME 13.8 secs (9.9-12.6)
== END 2018-11-01 15:00 | disposition home or self-care (01) ==
LOC: LAB 14:59
PROVIDERS: ATTEND Specialist
DX: Z79.01 Long term (current) use of anticoagulants (principal)
CPT/HCPCS: 36415; 85610

== ENCOUNTER 2018-11-03 14:38 | Outpatient (CLI) | payer MEDICAID ==
[2018-11-03 15:21] LABS: INR 1.4 (0.8-1.2); PT - PROTHROMBIN TIME 15.9 secs (9.9-12.6)
== END 2018-11-03 14:39 | disposition home or self-care (01) ==
LOC: LAB 14:38
PROVIDERS: ATTEND Specialist
DX: Z79.01 Long term (current) use of anticoagulants (principal)
CPT/HCPCS: 36415; 85610

== ENCOUNTER 2018-11-03 14:52 | Emergency (ER) | payer MEDICAID ==
--- NOTE | 2018-11-03 16:04 | ED Physician Documentation ---
History of Present Illness - Stated complaint Stated Complaint: POSS AFIBB - Chief complaint Chief Complaint: Cardiac - History obtained from History obtained from: Patient - History of Present Illness Timing: Today Pain level max: 0 Pain level now: 0 - Additonal information Additional information: 62-year-old female presents to the emergency department stating that she was having trouble feeling her pulse, was getting an outpatient lab draw for an INR check and they sent her here for evaluation. Denies any chest pain, difficulty breathing, nausea or vomiting. No abdominal pain. No diarrhea. Occasionally has pain in the right hip when getting out of bed in the morning. No fall. 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 HEENT: Chronic vision loss Psych: None Musculoskeletal: Other Derm: None - Past Surgical History Past Surgical History: Yes /ALIGNER TYPEWRITER: Hysterectomy, Oophrectomy, Mastectomy HEENT: Tonsil/Adenoidectomy - Present Medications Home Medications: Ambulatory Orders Medication Instructions Recorded Confirmed Albuterol Sulfate [Proair Hfa 2 puffs INH Q4H PRN 10/28/18 11/03/18 Inhaler] Atorvastatin [Lipitor] 20 mg ORAL DAILY 10/28/18 11/03/18 Benazepril/Hydrochlorothiazide 1 tab PO DAILY 10/28/18 11/03/18 [Benazepril-Hctz 20-25 mg Tab] Calcium Carbonate/Vitamin D3 1 tab PO DAILY 10/28/18 11/03/18 [Calcium 600-Vit D3 800 Tablet] Carvedilol 12.5 mg PO BID 10/28/18 11/03/18 Sertraline [Zoloft] 100 mg PO BID 10/28/18 11/03/18 Carvedilol [Coreg] 25 mg PO BID #60 tablet 10/30/18 11/03/18 Digoxin [Lanoxin] 125 mcg PO DAILY #30 tablet 10/30/18 11/03/18 Furosemide [Lasix] 20 mg PO DAILY #30 tablet 10/30/18 11/03/18 Potassium Chloride [Klor-Con] 20 meq PO DAILY #30 packet 10/30/18 11/03/18 Warfarin [Coumadin] 5 mg PO 1400 #30 tablet 10/30/18 11/03/18 - Allergies Allergies/Adverse Reactions: Allergies Allergy/AdvReac Type Severity Reaction Status Date / Time Penicillins Allergy Unknown Verified 11/03/18 15:00 Sulfa (Sulfonamide Allergy Unknown Verified 11/03/18 15:00 Antibiotics) - Social History Does the pt smoke?: No Smoking Status: Never smoker Does the pt drink ETOH?: Yes Does the pt have substance abuse?: No - Immunizations Immunizations are current?: Yes - POLST Patient has POLST: No POLST Status: DNR (If she has had a cardiopulmonary arrest, she does not want to be resuscitated. And taking care of her parents, she realizes that staying alive is not always correct up to be. She is also had a very hard life, with depression, and wants to remain independent. If she loses her independence, has to rely on anyone to take care of her, life would not be worth living. She will allow me to do a cardioversion of her atrial fibrillation and if that were to occur.) PD ED PE NORMAL - Vitals Vital signs reviewed: Yes (Temp is 36.9) - General General: Alert and oriented X 3, No acute distress - HEENT HEENT: Moist mucous membranes - Neck Neck: Supple, no meningeal sign - Cardiac Cardiac: Strong equal pulses, Other (Irregular) - Respiratory Respiratory: No respiratory distress, Clear bilaterally - Abdomen Abdomen: Soft, Non tender, Non distended - Derm Derm: Warm and dry - Extremities Extremities: No edema, No calf tenderness / cord - Neuro Neuro: Alert and oriented X 3 - Psych Psych: Normal mood, Normal affect Results - Vitals Vitals: Vital Signs - 24 hr 11/03/18 11/03/18 11/03/18 14:56 15:30 16:05 Temperature 69 C H Heart Rate 69 105 H 111 H Respiratory 16 16 23 Rate Blood Pressure 122/82 H 110/73 120/85 H O2 Saturation 97 94 Oxygen O2 Source Room air - EKG (time done) 1513 Rate: Rate (enter#) (120) Rhythm: Atrial fibrillation [place]: Normal QRS: Normal, LVH Ischemia: Normal ST segments PD MEDICAL DECISION MAKING - ED course Complexity details: considered differential, d/w patient ED course: 62-year-old female is still in atrial fibrillation, her INR is 1.4 on her outpatient lab draw. We downloaded an vincent to her phone for her to help check her pulse. Patient has no other complaints at this time. Patient counseled regarding signs and symptoms for which I believe and urgent re-evaluation would be necessary. Patient with good understanding of and agreement to plan and is comfortable going home at this time This document was made in part using voice recognition software. While efforts are made to proofread this document, sound alike and grammatical errors may occur. No chest pain. No shortness of breath Departure - Departure Disposition: 01 Home, Self Care Clinical Impression: Atrial fibrillation Qualifiers: Atrial fibrillation type: unspecified Qualified Code(s): I48.91 - Unspecified atrial fibrillation Condition: Good Instructions: ED Afib Follow-Up: your,doctor in 1 week [Other] Comments: Continue your medications at home. You can use Tylenol for any pain. Return if you worsen Discharge Date/Time: 11/03/18 16:21
[2018-11-03 16:06] VITALS: BP 120/85
== END 2018-11-03 16:21 | disposition home or self-care (01) ==
LOC: ED 14:52
DX: I48.91 Unspecified atrial fibrillation (principal); Z79.01 Long term (current) use of anticoagulants; M25.551 Pain in right hip; I10 Essential (primary) hypertension
CPT/HCPCS: 36415; 85610; 93005; 99283

== ENCOUNTER 2018-11-18 13:37 | Outpatient (CLI) | payer MEDICAID ==
[2018-11-18 19:11] LABS: PT - PROTHROMBIN TIME 22.2 secs (9.9-12.6)
== END 2018-11-19 23:59 | disposition home or self-care (01) ==
LOC: LAB.N 13:37
PROVIDERS: ATTEND Specialist
DX: Z79.01 Long term (current) use of anticoagulants (principal)
CPT/HCPCS: 36415; 85610

== ENCOUNTER 2018-11-28 15:34 | Emergency (ER) | payer MEDICAID ==
[2018-11-28 15:50] VITALS: BP 143/103
--- NOTE | 2018-11-28 16:52 | ED Physician Documentation ---
History of Present Illness - Stated complaint Stated Complaint: MED REFILL - Chief complaint Chief Complaint: General - History obtained from History obtained from: Patient - History of Present Illness Timing: Today Pain level max: 0 Pain level now: 0 - Additonal information Additional information: 63-year-old female presents to the emergency department requesting a refill of her medications. She is going back to [place] soon but needs a 30-day supply of her medications. No complaints. 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 HEENT: Chronic vision loss Psych: None Musculoskeletal: Other Derm: None - Past Surgical History Past Surgical History: Yes /SURGERY SCHEDULING COORDINATOR: Hysterectomy, Oophrectomy, Mastectomy HEENT: Tonsil/Adenoidectomy - Present Medications Home Medications: Ambulatory Orders Medication Instructions Recorded Confirmed Albuterol Sulfate [Proair Hfa 2 puffs INH Q4H PRN 10/28/18 11/03/18 Inhaler] Atorvastatin [Lipitor] 20 mg ORAL DAILY 10/28/18 11/03/18 Benazepril/Hydrochlorothiazide 1 tab PO DAILY 10/28/18 11/03/18 [Benazepril-Hctz 20-25 mg Tab] Calcium Carbonate/Vitamin D3 1 tab PO DAILY 10/28/18 11/03/18 [Calcium 600-Vit D3 800 Tablet] Carvedilol 12.5 mg PO BID 10/28/18 11/03/18 Sertraline [Zoloft] 100 mg PO BID 10/28/18 11/03/18 Carvedilol [Coreg] 25 mg PO BID #60 tablet 11/28/18 Digoxin [Lanoxin] 125 mcg PO DAILY #30 tablet 11/28/18 Furosemide [Lasix] 20 mg PO DAILY #30 tablet 11/28/18 Potassium Chloride [Klor-Con] 20 meq PO DAILY #30 packet 11/28/18 Warfarin [Coumadin] 5 mg PO 1400 #30 tablet 11/28/18 - Allergies Allergies/Adverse Reactions: Allergies Allergy/AdvReac Type Severity Reaction Status Date / Time Penicillins Allergy Unknown Verified 11/03/18 15:00 Sulfa (Sulfonamide Allergy Unknown Verified 11/03/18 15:00 Antibiotics) - Social History Does the pt smoke?: No Smoking Status: Never smoker Does the pt drink ETOH?: Yes Does the pt have substance abuse?: No - Immunizations Immunizations are current?: Yes - POLST Patient has POLST: No POLST Status: DNR (If she has had a cardiopulmonary arrest, she does not want to be resuscitated. And taking care of her parents, she realizes that staying alive is not always correct up to be. She is also had a very hard life, with depression, and wants to remain independent. If she loses her independence, has to rely on anyone to take care of her, life would not be worth living. She will allow me to do a cardioversion of her atrial fibrillation and if that were to occur.) PD ED PE NORMAL - Vitals Vital signs reviewed: Yes - General General: Alert and oriented X 3, No acute distress - HEENT HEENT: Moist mucous membranes - Derm Derm: Warm and dry - Neuro Neuro: Alert and oriented X 3 - Psych Psych: Normal mood, Normal affect Results - Vitals Vitals: Vital Signs - 24 hr 11/28/18 15:46 Temperature 36.2 C L Heart Rate 67 Respiratory 20 Rate Blood Pressure 143/103 H O2 Saturation 98 Oxygen O2 Source Room air - Labs Labs: Laboratory Tests 11/28/18 14:10 Whole Blood INR 2.0 H PD MEDICAL DECISION MAKING - ED course Complexity details: reviewed results, considered differential, d/w patient ED course: Medications refilled. Patient is asymptomatic. Patient counseled regarding signs and symptoms for which I believe and urgent re-evaluation would be necessary. Patient with good understanding of and agreement to plan and is comfortable going home at this time This document was made in part using voice recognition software. While efforts are made to proofread this document, sound alike and grammatical errors may occur. Departure - Departure Disposition: 01 Home, Self Care Clinical Impression: Medication refill Condition: Good Follow-Up: DIANE BAUTISTA DO [Primary Care Provider] - As Needed Prescriptions: Carvedilol [Coreg] 25 mg PO BID #60 tablet Digoxin [Lanoxin] 125 mcg PO DAILY #30 tablet Furosemide [Lasix] 20 mg PO DAILY #30 tablet Potassium Chloride [Klor-Con] 20 meq PO DAILY #30 packet Warfarin [Coumadin] 5 mg PO 1400 #30 tablet Comments: Return if you worsen. Follow-up with your doctor for further care. You can try taking these prescriptions to [facility] as it appears significantly cheaper than the other pharmacies. you can use the [employer] vincent for lower prices on your medications.
== END 2018-11-28 17:11 | disposition home or self-care (01) ==
LOC: ED 15:34
DX: Z76.0 Encounter for issue of repeat prescription (principal); I10 Essential (primary) hypertension; E78.00 Pure hypercholesterolemia, unspecified; I48.91 Unspecified atrial fibrillation; Z79.01 Long term (current) use of anticoagulants
CPT/HCPCS: 85610; 99281; 99283